=== PATIENT | female | born 1995 | race American Indian/Alaskan Native ===

== ENCOUNTER 2017-10-17 16:31 | Emergency (ER) | payer SELFPAY | END 2017-10-17 16:45 | disposition left against medical advice (07) | LOC: ED 16:31 | DX: O26.891 Other specified pregnancy related conditions, first trimester (principal); Z53.21 Procedure and treatment not carried out due to patient leaving prior to being seen by health care provider ==

== ENCOUNTER 2018-10-28 17:13 | Emergency (ER) | payer SELFPAY ==
[2018-10-28 18:07] VITALS: BP 112/71
[2018-10-28 19:14] LABS: Bacteria,Urine 2+ /HPF (Negative); Bilirubin,Urine NEG (Negative); Blood,Urine NEG (Negative); Color,Urine Yellow (Yellow); Mucus,Urine FEW /HPF; Protein,Urine <15 mg/dL mg/dL (Negative)
--- NOTE | 2018-10-28 20:33 | Event Note ---
ED Screening Note Date of service: 10/28/18 Time: 18:06 ED Screening Note: 23 y o female at approx 15 weeks gestation presents cc of lower pelv and back pain x 2 days This initial assessment/diagnostic orders/clinical plan/treatment(s) is/are subject to change based on patients health status, clinical progression and re- assessment by fellow clinical providers in the ED. Further treatment and workup at subsequent clinical providers discretion. Patient/guardian urged not to elope from the ED as their condition may be serious if not clinically assessed and managed. Initial orders include: ua, upt
== END 2018-10-28 22:20 ==
LOC: ED 17:13
DX: R10.2 Pelvic and perineal pain (principal); Z53.21 Procedure and treatment not carried out due to patient leaving prior to being seen by health care provider
CPT/HCPCS: 81001